=== PATIENT | female | born 1980 | race Caucasian/White ===

== ENCOUNTER 2017-05-21 09:39 | Emergency (ER) | payer OTHER ==
[2017-05-21 09:48] VITALS: BP 141/81; PULSE 79; TEMP 98.3; BMI 24.3
[2017-05-21] MEDS ORDERED: IBUPROFEN 600 MG TABLET (FP) PO ONE (10:33)
[2017-05-21] MEDS ORDERED: IBUPROFEN 400 MG TABLET (FP) PO ONE (10:35)
--- NOTE | 2017-05-21 11:17 | PDOC ---
History of Present Illness - General Chief Complaint: Pain Stated Complaint: LT ARM PAIN Time Seen by Provider: 05/21/17 10:20 History Source: Patient Exam Limitations: No Limitations - History of Present Illness Initial Comments: 05/21/17 10:34 37 yr female c/o left shoulder pain for 2-3 days radiates to the side of her neck. Ot has had same symptoms in the past that responded well with PT. Pt denies trauma, states she woke up with the pain 3 days ago. Extremity Pain Location - Extremity Pain Location Extremity Pain Locations: left: other (shoulder) Past History - Past Medical History Allergies/Adverse Reactions: Allergies Allergy/AdvReac Type Severity Reaction Status Date / Time No Known Allergies Allergy Verified 05/21/17 09:44 Home Medications: Ambulatory Orders NK [No Known Home Medication] 05/21/17 COPD: No - Suicide/Smoking/Psychosocial Hx Smoking History: Never smoked Have you smoked in the past 12 months: No Information on smoking cessation initiated: No Hx Alcohol Use: No Drug/Substance Use Hx: No Substance Use Type: None Review of Systems - Review of Systems Able to Perform ROS?: Yes Is the patient limited Yoruba proficient: No Constitutional: No: Symptoms Reported HEENTM: No: Symptoms Reported Respiratory: No: Symptoms reported Cardiac (ROS): No: Symptoms Reported ABD/GI: No: Symptoms Reported : No: Symptoms Reported Musculoskeletal: Yes: Symptoms Reported, See HPI Integumentary: No: Symptoms Reported Neurological: No: Symptoms reported *Physical Exam - Vital Signs Last Vital Signs Temp Pulse Resp BP Pulse Ox 98.3 F 79 18 141/81 100 05/21/17 09:46 05/21/17 09:46 05/21/17 09:46 05/21/17 09:46 05/21/17 09:46 - Physical Exam General Appearance: Yes: Nourished, Appropriately Dressed HEENT: positive: EOMI, [place] Neck: positive: Supple, Tender lateral (left lateral neck ttp muscle ). negative: Lymphadenopathy (R), Lymphadenopathy (L) Respiratory/Chest: positive: Lungs Clear, Normal Breath Sounds Cardiovascular: positive: Regular Rhythm, Regular Rate Lymphatic: negative: Adenopathy Musculoskeletal: positive: Normal Inspection Extremity: positive: Normal Capillary Refill, Normal Inspection, Normal Range of Motion, Tender (limited ROM left shoulder, nv intact , no bony tenderness, limited abduction ) Integumentary: positive: Normal Color, Dry, Warm Neurologic: positive: Fully Oriented, Alert, Normal Mood/Affect, Normal Response , Motor Strength / ED Treatment Course - RADIOLOGY Radiology Studies Ordered: Category Date Time Status SHOULDER-LEFT [RAD] Stat Radiology 05/21/17 10:33 Ordered Medical Decision Making - Medical Decision Making 05/21/17 11:19 cc: left shoulder pain with limited ROM nv intact no deformity or swelling pain worse with movement of the shoulder neg midline neck tenderness will get xray of the shoulder pt refused toradol injection, will give motrin now *DC/Admit/Observation/Transfer Diagnosis at time of Disposition: Shoulder strain Qualifiers: Encounter type: initial encounter Laterality: right Qualified Code(s): S46.911A - Strain of unspecified muscle, fascia and tendon at shoulder and upper arm level, right arm, initial encounter - Discharge Dispostion Disposition: HOME Condition at time of disposition: Good - Referrals Referrals: Bharat Shankar MD [Staff Physician] - - Patient Instructions Additional Instructions: please follow with the orthopedist for follow up take naprosyn for pain as directed avoid any heavy lifting with the left arm Return to ER for any worsening symptoms - Post Discharge Activity
== END 2017-05-21 11:46 | disposition home or self-care (01) ==
LOC: JERFT 09:39
DX: S46.911A Strain of unspecified muscle, fascia and tendon at shoulder and upper arm level, right arm, initial encounter (principal); W18.39XA Other fall on same level, initial encounter; Y93.9 Activity, unspecified; Y92.9 Unspecified place or not applicable
CPT/HCPCS: 73030-TC-LT; 99281-25

== ENCOUNTER 2018-11-26 08:57 | Emergency (ER) | payer OTHER | END 2018-11-26 09:58 | disposition home or self-care (01) | LOC: JERFT 08:57 ==

== ENCOUNTER 2021-10-12 16:48 | Emergency (ER) | payer OTHER ==
[2021-10-12 17:02] VITALS: BP 162/85; PULSE 85; TEMP 98; BMI 24.3
[2021-10-12] MEDS ORDERED: ACETAMINOPHEN 1000 MG/100 ML BAG IVPB ONE (18:19)
[2021-10-12] MEDS ORDERED: SODIUM CHLORIDE 1,000 ML IV STA (18:19)
[2021-10-12 18:43] LABS: PH,URINE >= 9.0 (5.0-8.0); URINE APPEARANCE CLEAR; URINE BILIRUBIN NEGATIVE (NEGATIVE); URINE COLOR YELLOW; URINE GLUCOSE (UA) NEGATIVE (NEGATIVE); URINE KETONE NEGATIVE (NEGATIVE); URINE LEUK ESTERASE NEGATIVE (NEGATIVE); URINE NITRITE NEGATIVE (NEGATIVE); URINE PROTEIN NEGATIVE (NEGATIVE)
[2021-10-12 18:45] LABS: HCG,QUALITATIVE URINE Negative
[2021-10-12 19:12] LABS: BASO % 0.4 % (0-2.0); EOS % 1.9 % (0-4.5); HEMATOCRIT 40.4 % (32.4-45.2); HEMOGLOBIN 13.5 GM/dL (10.7-15.3); LYMPH % 39.9 % (8-40); MCH 27.8 pg (25.7-33.7); MCHC 33.4 g/dl (32.0-36.0); MEAN CELL VOLUME 83.4 fl (80-96); MEAN PLT VOLUME 9.9 fl (7.5-11.1); MONO % 9.8 % (3.8-10.2); PLATELET COUNT 169 10^3/uL (134-434); RBC 4.85 M/mm3 (3.60-5.2); WHITE BLOOD COUNT 5.6 K/mm3 (4.0-10.0)
[2021-10-12 19:39] LABS: BLOOD UREA NITROGEN 10.6 mg/dL (7-18); CALCIUM 8.9 mg/dL (8.5-10.1)
[2021-10-12 19:40] LABS: ALBUMIN 3.7 g/dl (3.4-5.0)
[2021-10-12 19:43] LABS: CREATININE 0.7 mg/dL (0.55-1.3)
[2021-10-12 19:44] LABS: TOT PROT 7.4 g/dl (6.4-8.2)
== END 2021-10-12 23:52 | disposition home or self-care (01) ==
LOC: JER 16:48
PROC: 3E0333Z Introduction of Anti-inflammatory into Peripheral Vein, Percutaneous Approach (ICD-10-PCS; principal; 2021-10-12)
PROC: 3E0337Z Introduction of Electrolytic and Water Balance Substance into Peripheral Vein, Percutaneous Approach (ICD-10-PCS; 2021-10-12)
DX: R10.9 Unspecified abdominal pain (principal)
CPT/HCPCS: 36415; 76830-TC; 80053; 81003; 83690; 84703; 85025; 87086; 87186; 99284-25

== ENCOUNTER 2022-04-02 13:56 | Emergency (ER) | payer OTHER ==
[2022-04-02 14:17] VITALS: BP 145/80; PULSE 100; RESP 18; TEMP 97; BMI 27.3
== END 2022-04-02 16:50 | disposition home or self-care (01) ==
LOC: JER 13:56
DX: S09.90XA Unspecified injury of head, initial encounter (principal); W20.8XXA Other cause of strike by thrown, projected or falling object, initial encounter
CPT/HCPCS: 70450-TC; 99284-25

== ENCOUNTER 2024-01-04 09:41 | Emergency (ER) | payer OTHER ==
[2024-01-04 09:47] VITALS: BP 129/84; PULSE 78; RESP 18; TEMP 98; BMI 25.8
[2024-01-04 10:57] LABS: BASO % 0.6 % (0-2.0); EOS % 2.6 % (0-4.5); HEMOGLOBIN 13.7 GM/dL (10.7-15.3); LYMPH % 39.1 % (8-40); MCH 27.2 pg (25.7-33.7); MCHC 33.5 g/dl (32.0-36.0); MEAN CELL VOLUME 81.4 fl (80-96); MEAN PLT VOLUME 9.2 fl (7.5-11.1); MONO % 8.7 % (3.8-10.2); PLATELET COUNT 198 10^3/uL (134-434); RBC 5.04 M/mm3 (3.60-5.2); RDW 14.8 % (11.6-15.6); WHITE BLOOD COUNT 4.2 K/mm3 (4.0-10.0)
[2024-01-04 11:01] LABS: HCG,QUALITATIVE URINE Negative
[2024-01-04 11:02] LABS: EPI CELLS >36 /uL (0-25.1); HYALINE CASTS 0 /uL (0-3.1); URINE APPEARANCE CLOUDY; URINE BACTERIA >9,000 /uL (0-1359); URINE BILIRUBIN NEGATIVE (NEGATIVE); URINE COLOR YELLOW; URINE GLUCOSE (UA) NEGATIVE (NEGATIVE); URINE KETONE NEGATIVE (NEGATIVE); URINE LEUK ESTERASE 1+ (NEGATIVE); URINE NITRITE NEGATIVE (NEGATIVE); URINE PROTEIN NEGATIVE (NEGATIVE); URINE RBC 30 /uL (0-23.9); URINE WBC 12 /uL (0-25.8)
[2024-01-04 11:14] LABS: POTASSIUM 4.2 mmol/L (3.5-5.1)
[2024-01-04 11:17] LABS: ALBUMIN 3.8 g/dl (3.4-5.0); BLOOD UREA NITROGEN 10.1 mg/dL (7-18)
[2024-01-04 11:20] LABS: CREATININE 0.8 mg/dL (0.55-1.3)
[2024-01-04 11:21] LABS: TOT PROT 7.9 g/dl (6.4-8.2)
[2024-01-04 11:22] LABS: BILIRUBIN,TOTAL 0.7 mg/dL (0.2-1)
== END 2024-01-04 12:30 | disposition home or self-care (01) ==
LOC: JER 09:41
DX: R10.30 Lower abdominal pain, unspecified (principal); M54.50 Low back pain, unspecified
CPT/HCPCS: 36415; 76830-TC; 80053; 81003; 84703; 85025; 87086; 87186; 99285-25

== ENCOUNTER 2024-05-14 15:29 | Emergency (ER) | payer OTHER ==
[2024-05-14 15:46] VITALS: BP 145/83; PULSE 87; RESP 17; TEMP 98.4; BMI 26.6
[2024-05-14] MEDS ORDERED: ACETAMINOPHEN 500 MG TABLET (FP) ONE (17:09)
[2024-05-14] MEDS: ACETAMINOPHEN 500 MG TABLET (FP) PO ONE (17:11)
[2024-05-14 17:22] LABS: EPI CELLS 1 /uL (0-25.1); HYALINE CASTS 0 /uL (0-3.1); PH,URINE 5.5 (5.0-8.0); URINE APPEARANCE CLEAR; URINE BACTERIA 6 /uL (0-1359); URINE BILIRUBIN NEGATIVE (NEGATIVE); URINE COLOR YELLOW; URINE GLUCOSE (UA) NEGATIVE (NEGATIVE); URINE KETONE TRACE (NEGATIVE); URINE LEUK ESTERASE NEGATIVE (NEGATIVE); URINE NITRITE NEGATIVE (NEGATIVE); URINE PROTEIN NEGATIVE (NEGATIVE); URINE RBC 349 /uL (0-23.9); URINE WBC 5 /uL (0-25.8)
== END 2024-05-14 21:20 | disposition home or self-care (01) ==
LOC: JER 15:29
DX: N20.0 Calculus of kidney (principal); R10.9 Unspecified abdominal pain
CPT/HCPCS: 74176-TC; 76830-TC; 81003; 84703; 99284-25